=== PATIENT | male | born 2000 | race Caucasian/White ===

== ENCOUNTER 2018-08-15 21:58 | Emergency (ER) | payer SELFPAY ==
[~2018-08-15] VITALS: Ht 162.6 cm; Wt 65.9 kg
[2018-08-15 21:59] VITALS: BP 136/79
== END 2018-08-15 22:49 | disposition left against medical advice (07) ==
LOC: M ED 21:58
DX: R11.10 Vomiting, unspecified (principal); Z53.21 Procedure and treatment not carried out due to patient leaving prior to being seen by health care provider

== ENCOUNTER 2018-09-13 18:57 | Emergency (ER) | payer OTHER, SELFPAY ==
[~2018-09-13] VITALS: Ht 162.6 cm; Wt 65.9 kg
--- NOTE | 2018-09-13 19:41 | REPVR ---
EXAM: CT Head Without Contrast EXAM DATE/TIME: 09/13/2018 7:19 PM CLINICAL HISTORY: 17 years old, male; Injury or trauma; Fall; Initial encounter; Blunt trauma (contusions or hematomas); Additional info: Fall/head inj, visual disturbances TECHNIQUE: Axial computed tomography images of the head/brain without contrast. All CT scans at this facility use at least one of these dose optimization techniques: automated exposure control; mA and/or kV adjustment per patient size (includes targeted exams where dose is matched to clinical indication); or iterative reconstruction. COMPARISON: No relevant prior studies available. FINDINGS: Brain: Normal. No hemorrhage. No significant white matter disease. No edema. Ventricles: Normal. No ventriculomegaly. Bones/joints: Unremarkable. No acute fracture. Sinuses: Visualized sinuses are unremarkable. No acute sinusitis. Mastoid air cells: Visualized mastoid air cells are unremarkable. No mastoid effusion. Soft tissues: Unremarkable. IMPRESSION: No acute intracranial abnormality. Electronically signed by: Ugo Chavarria On 09/13/2018 19:41:21 PM
[2018-09-13] MEDS ORDERED: ONDANSETRON 4 MG ORAL DISINTEGRATING TAB (Q0162 PER 1MG) PO ONE (20:00)
[2018-09-13] MEDS ORDERED: IBUPROFEN 800 MG TAB PO ONE (20:00)
[2018-09-13] MEDS ORDERED: ONDA4TAB6 PO (20:45)
[2018-09-13 20:53] VITALS: BP 149/66
== END 2018-09-13 20:55 | disposition home or self-care (01) ==
LOC: M ED 18:57
DX: S00.83XA Contusion of other part of head, initial encounter (principal); W01.0XXA Fall on same level from slipping, tripping and stumbling without subsequent striking against object, initial encounter; Y92.410 Unspecified street and highway as the place of occurrence of the external cause; F07.81 Postconcussional syndrome; F17.210 Nicotine dependence, cigarettes, uncomplicated
CPT/HCPCS: 70450; 99283; Q0162